=== PATIENT | male | born 1960 | race Caucasian/White ===

== ENCOUNTER 2018-12-05 23:01 | Emergency (ER) | payer BC ==
[~2018-12-05] VITALS: Ht 177.8 cm; Wt 104.6 kg
[2018-12-06] MEDS ORDERED: DIPHENHYDRAMINE 50 MG/ML, 1ML ONE (00:19)
[2018-12-06] MEDS ORDERED: PROCHLORPERAZINE 5 MG/ML, 2ML ONE (00:19)
[2018-12-06] MEDS ORDERED: KETOROLAC 30 MG/1 ML ONE (00:19)
--- NOTE | 2018-12-06 00:29 | NUR ---
PT HERE FOR HEADACHE AND DIZZINESS. BP ELEVATED BUT OTHER VSS. PIV PLACED. PT MEDICATED. PT HAS NO NEEDS AT THIS TIME. DAUGHTER AT BEDSIDE. CALL LIGHT IN REACH
[2018-12-06] MEDS ORDERED: DIPHENHYDRAMINE 50 MG/ML, 1ML IVPush ONE (00:30)
[2018-12-06] MEDS ORDERED: PROCHLORPERAZINE 5 MG/ML, 2ML IVPush ONE (00:30)
[2018-12-06] MEDS ORDERED: KETOROLAC 30 MG/1 ML IVPush ONE (00:30)
[2018-12-06] MEDS ORDERED: DIAZEPAM 5 MG TABLET ONE (00:49)
[2018-12-06 00:53] VITALS: BP 135/84
[2018-12-06] MEDS ORDERED: DIAZEPAM 5 MG TABLET PO ONE (01:00)
--- NOTE | 2018-12-06 01:36 | NUR ---
Patient given discharge instructions and they have confirmed that they understand the instructions. Patient ambulatory with steady gait.
== END 2018-12-06 01:39 | disposition home or self-care (01) ==
LOC: ED 23:59
DX: G44.209 Tension-type headache, unspecified, not intractable (principal); R42 Dizziness and giddiness; I10 Essential (primary) hypertension; E11.9 Type 2 diabetes mellitus without complications
CPT/HCPCS: 70450; 96374; 96375; 99284; J0780; J1200; J1885

== ENCOUNTER 2019-08-22 12:50 | Emergency (ER) | payer BC ==
[~2019-08-22] VITALS: Ht 177.8 cm; Wt 102.1 kg
[2019-08-22] MEDS ORDERED: SODIUM CHLORIDE 0.9% 1,000 ML IV ONE (13:14)
--- NOTE | 2019-08-22 13:22 | NUR ---
Pt to 27 from lobby
[2019-08-22] MEDS ORDERED: SODIUM CHLORIDE FLUSH 10ML SYR IVF ONE (13:30)
[2019-08-22] MEDS ORDERED: LORazepam 2 MG/ML, 1ML IV ONE (13:30)
[2019-08-22] MEDS ORDERED: LORazepam 2 MG/ML, 1ML ONE (13:47)
[2019-08-22 13:52] LABS: BASOPHILS # (AUTO) 0.03 x10^3/uL (0-0.1); BASOPHILS % (AUTO) 1 % (0-1); EOSINOPHILS # (AUTO) 0.07 x10^3/uL (0-0.4); EOSINOPHILS % (AUTO) 1 % (1-7); LYMPHOCYTES # (AUTO) 1.72 x10^3/uL (1-3.4); LYMPHOCYTES % (AUTO) 33 % (22-44); MD NO; MEAN CORPUSCULAR HEMOGLOBIN 30.9 pg (27.5-34.5); MEAN CORPUSCULAR HGB CONC 33.8 g/dL (33.2-36.2); MEAN CORPUSCULAR VOLUME 91.5 fL (81-97); MEAN PLATELET VOLUME 8.1 fL (7.4-10.4); MONOCYTES # (AUTO) 0.37 x10^3/uL (0.2-0.8); MONOCYTES % (AUTO) 7 % (2-9); NEUTROPHILS # (AUTO) 3.01 x10^3/uL (1.8-6.8); NEUTROPHILS % (AUTO) 58 % (42-75); PLATELET COUNT 235 x10^3/uL (130-400); RED BLOOD COUNT 5.58 x10^6/uL (4.38-5.82)
[2019-08-22 14:01] LABS: ALANINE AMINOTRANSFERASE 47 U/L (12-78); ALBUMIN 4.2 g/dL (3.4-5.0); ANION GAP 8 mmol/L (5-15); CHLORIDE 105 mmol/L (98-107); CREATININE 0.98 mg/dL (0.7-1.3)
--- NOTE | 2019-08-22 14:13 | NUR ---
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 DAUGHTER STATES "HE WAS TALKING LIKE A CAVEMAN". PT CURRENTLY AO X 4. PT ABLE TO MOVE ALL EXTREMITIES W/O DIFFICULTY. PETROLEUM PRODUCTION ENGINEER EQUAL BILATERALLY. SENSATION INTACT. PERRLA. SKIN PWD. RESP EVEN AND UNLABORED. PT ALSO REPORTS INCREASING LEG WEAKNESS OVER THE LAST MONTH THAT HE IS CURRENTLY BEING EVALUATED BY NEURO FOR. IV STARTED AND PT MEDICATED ORDERED FOR MRI. PT CURRENTLY IN MRI.
[2019-08-22] MEDS ORDERED: GADOTERATE 10 MMOL/20 ML SYR ONE (14:15)
[2019-08-22 14:30] LABS: ALKALINE PHOSPHATASE 65 U/L (45-117); BILIRUBIN,TOTAL 0.5 mg/dL (0.2-1.0); TOTAL PROTEIN 7.9 g/dL (6.4-8.2)
--- NOTE | 2019-08-22 14:45 | NUR ---
LANNY HOANG AT BEDSIDE FOR RECHECK/EXPLANATION OF RESULTS.
[2019-08-22 15:22] VITALS: BP 106/74
== END 2019-08-22 15:30 | disposition home or self-care (01) ==
LOC: ED 14:37
DX: R51 Headache (principal); R53.1 Weakness; R42 Dizziness and giddiness; R47.1 Dysarthria and anarthria
CPT/HCPCS: 36415; 70553; 80053; 82607; 83036; 83735; 85025; 93005; 96374; 99284; A9575; J2060

== ENCOUNTER → 2020-01-21 | Outpatient (CLI) | payer BC ==
[~2020-01-21] MED LIST: ASPI-496 PO; GABA300S PO; LISI-170 PO; MELO15TA24 PO; METF500T17 PO
[2020-01-21 16:25] LABS: MICROSCOPIC NOT IND
[2020-01-21 16:30] LABS: BASOPHILS # (AUTO) 0.04 x10^3/uL (0-0.1); BASOPHILS % (AUTO) 1 % (0-1); EOSINOPHILS # (AUTO) 0.19 x10^3/uL (0-0.4); EOSINOPHILS % (AUTO) 3 % (1-7); LYMPHOCYTES # (AUTO) 2.09 x10^3/uL (1-3.4); LYMPHOCYTES % (AUTO) 35 % (22-44); MD NO; MEAN CORPUSCULAR VOLUME 93.8 fL (81-97); MEAN PLATELET VOLUME 8.1 fL (7.4-10.4); MONOCYTES % (AUTO) 8 % (2-9); NEUTROPHILS # (AUTO) 3.22 x10^3/uL (1.8-6.8); NEUTROPHILS % (AUTO) 53 % (42-75); PLATELET COUNT 239 x10^3/uL (130-400); RED BLOOD COUNT 5.43 x10^6/uL (4.38-5.82); RED CELL DISTRIBUTION WIDTH 14.2 % (9.4-14.8)
[2020-01-21 16:36] LABS: INTERNATIONAL NORMALIZED RATIO 0.97 (0.93-1.1); PROTHROMBIN TIME 10.3 Seconds (9.6-11.5)
[2020-01-21 16:38] LABS: ALBUMIN 4.1 g/dL (3.4-5.0); ANION GAP 5 mmol/L (5-15); CALCIUM 9.5 mg/dL (8.5-10.1); CHLORIDE 110 mmol/L (98-107)
[2020-01-21 16:43] LABS: ALANINE AMINOTRANSFERASE 80 U/L (12-78); ALKALINE PHOSPHATASE 69 U/L (45-117); BILIRUBIN,TOTAL 0.3 mg/dL (0.2-1.0); CREATININE 1.04 mg/dL (0.7-1.3); TOTAL PROTEIN 8.1 g/dL (6.4-8.2)
== END | disposition home or self-care (01) ==
LOC: STAR 15:06
PROVIDERS: ATTEND Neurological Surgery
DX: Z01.818 Encounter for other preprocedural examination (principal); M47.814 Spondylosis without myelopathy or radiculopathy, thoracic region; M48.062 Spinal stenosis, lumbar region with neurogenic claudication; M51.36 Other intervertebral disc degeneration, lumbar region; M54.16 Radiculopathy, lumbar region; R79.1 Abnormal coagulation profile; R82.90 Unspecified abnormal findings in urine; R94.31 Abnormal electrocardiogram [ECG] [EKG]
CPT/HCPCS: 36415; 71046; 80053; 81003; 85025; 85610; 85730; 93005

== ENCOUNTER 2020-01-29 07:40 | Inpatient (IN) | payer BC ==
[~2020-01-29] VITALS: Ht 177.8 cm; Wt 110.3 kg
[2020-01-29] MEDS ORDERED: FENTANYL PF 250 MCG/5ML ONE (08:17)
[2020-01-29] MEDS ORDERED: MIDAZOLAM 1 MG/ML, 2ML ONE (08:17)
[2020-01-29] MEDS ORDERED: LIDOCAINE GEL 2%, 5ML ONE (08:18)
[2020-01-29] MEDS ORDERED: CHLORHEXIDINE 15 ML UDC ONE (08:21)
[2020-01-29] MEDS ORDERED: LACTATED RINGERS 1,000 ML IV SCH (08:22)
[2020-01-29] MEDS ORDERED: CHLORHEXIDINE 15 ML UDC MM ONE (08:30)
[2020-01-29] MEDS ORDERED: hydrALAzine 20 MG/ML, 1ML IV PRN (09:00)
[2020-01-29] MEDS ORDERED: PROMETHAZINE 25 MG/ML, 1ML IVPush PRN (09:00)
[2020-01-29] MEDS ORDERED: LABETALOL 5MG/ML, 20ML IV PRN (09:00)
[2020-01-29] MEDS ORDERED: GABAPENTIN 300 MG CAPSULE PO ONE (09:00)
[2020-01-29] MEDS ORDERED: ACETAMINOPHEN 500 MG TABLET PO ONE (09:00)
[2020-01-29] MEDS ORDERED: MEPERIDINE/PF 25MG/0.5ML IVPush PRN (09:00)
[2020-01-29] MEDS ORDERED: HALOPERIDOL 5 MG/ML IV PRN (09:00)
[2020-01-29] MEDS ORDERED: DIPHENHYDRAMINE 50 MG/ML, 1ML IVPush PRN ×2 (09:00→11:00)
[2020-01-29] MEDS ORDERED: HYDROmorphone 1 MG/ML, 1ML INJ IVPush PRN (09:00)
[2020-01-29] MEDS ORDERED: BACITRACIN 50,000 UNIT IRRIG ONE (09:38)
[2020-01-29] MEDS ORDERED: BUPIVACAINE/PF-EPI 0.5% 1:200K INFIL ONE (09:39)
[2020-01-29] MEDS ORDERED: PROPOFOL 10 MG/ML, 20ML ONE (10:25)
[2020-01-29] MEDS ORDERED: ONDANSETRON 2MG/ML, 2ML ONE (10:25)
[2020-01-29] MEDS ORDERED: SUCCINYLCHOLINE 20 MG/ML, 10ML ONE (10:25)
[2020-01-29] MEDS ORDERED: GLYCOPYRROLATE 0.2MG/1ML, 5ML ONE (10:25)
[2020-01-29] MEDS ORDERED: ROCURONIUM 10MG/ML,5ML ONE (10:25)
[2020-01-29] MEDS ORDERED: CEFAZOLIN 1,000 MG ONE (10:25)
[2020-01-29] MEDS ORDERED: DEXAMETHASONE 4 MG/ML, 1ML ONE (10:25)
[2020-01-29] MEDS ORDERED: NEOSTIGMINE 1 MG/ML, 10ML ONE (10:25)
[2020-01-29] MEDS ORDERED: FENTANYL PF 100 MCG/2ML ONE (10:56)
[2020-01-29] MEDS ORDERED: OXYcodone 5 MG/5 ML ORAL.SOL UDC ONE (10:57)
[2020-01-29] MEDS ORDERED: METHOCARBAMOL 1,000 MG in DEXTROSE 5% 100 ML IV ONE (11:00)
[2020-01-29] MEDS ORDERED: BISACODYL 10 MG SUPP PR PRN (11:00)
[2020-01-29] MEDS ORDERED: PROMETHAZINE 25 MG/ML, 1ML IM PRN (11:00)
[2020-01-29] MEDS ORDERED: ACETAMINOPHEN 325 MG TABLET PO PRN (11:00)
[2020-01-29] MEDS ORDERED: INSULIN REGULAR 100 UNITS/ML, 3ML VIAL SQ-INSULIN PRN (11:00)
[2020-01-29] MEDS: NS + 20MEQ KCL 1,000 ML IV SCH ×2 (11:00→20:37)
[2020-01-29] MEDS ORDERED: SENNA/DOCUSATE TABLET PO PRN (11:00)
[2020-01-29] MEDS ORDERED: ONDANSETRON 2MG/ML, 2ML IVPush PRN (11:00)
[2020-01-29] MEDS ORDERED: PHARMACY MAY ADJ FOR RENAL FX MC PRN (11:00)
[2020-01-29] MEDS: FENTANYL PF 100 MCG/2ML IV PRN ×3 (11:01→11:16)
[2020-01-29] MEDS: OXYcodone 5 MG/5 ML ORAL.SOL UDC PO PRN ×2 (11:10→11:17)
[2020-01-29 12:41] VITALS: BP 120/77
[2020-01-29] MEDS: HYDROmorphone 1 MG/ML, 1ML INJ IVPush PRN (13:51)
[2020-01-29] MEDS ORDERED: LISINOPRIL 20 MG TABLET PO ONE (14:00)
[2020-01-29] MEDS ORDERED: metFORMIN 500 MG TABLET PO ONE (14:00)
[2020-01-29] MEDS ORDERED: GABAPENTIN 300 MG CAPSULE ONE (16:20)
[2020-01-29] MEDS ORDERED: HYDROcodone/APAP 5/325 TABLET ONE (16:21)
[2020-01-29] MEDS: HYDROcodone/APAP 5/325 TABLET PO PRN (16:23)
[2020-01-29] MEDS: GABAPENTIN 300 MG CAPSULE PO SCH ×2 (16:24→20:37)
[2020-01-29] MEDS: CEFAZOLIN PMX 1GM/50ML 50 ML IVPB SCH (17:57)
[2020-01-29] MEDS: SODIUM CHLORIDE FLUSH 10ML SYR IVF SCH (20:38)
[2020-01-29 20:42] VITALS: BP 113/72
[2020-01-29] MEDS: OXYcodone/APAP 5/325MG TABLET PO PRN (20:48)
[2020-01-29] MEDS ORDERED: metFORMIN 500 MG TABLET ONE (21:46)
[2020-01-29] MEDS ORDERED: HYDROmorphone 1 MG/ML, 1ML INJ ONE (21:47)
[2020-01-29] MEDS ORDERED: LISINOPRIL 20 MG TABLET ONE (21:47)
[2020-01-29] MEDS: METHOCARBAMOL 750 MG TABLET PO PRN (22:18)
[2020-01-30 00:10] VITALS: BP 115/70
[2020-01-30] MEDS: CEFAZOLIN PMX 1GM/50ML 50 ML IVPB SCH ×2 (02:28→20:19)
[2020-01-30] MEDS: HYDROcodone/APAP 5/325 TABLET PO PRN (02:41)
[2020-01-30 03:09] VITALS: BP 116/72
[2020-01-30] MEDS: NS + 20MEQ KCL 1,000 ML IV SCH ×5 (04:54→22:57)
[2020-01-30 05:39] LABS: BASOPHILS # (AUTO) 0.02 x10^3/uL (0-0.1); BASOPHILS % (AUTO) 0 % (0-1); EOSINOPHILS # (AUTO) 0.04 x10^3/uL (0-0.4); EOSINOPHILS % (AUTO) 1 % (1-7); LYMPHOCYTES # (AUTO) 1.86 x10^3/uL (1-3.4); LYMPHOCYTES % (AUTO) 19 % (22-44); MD NO; MEAN CORPUSCULAR HEMOGLOBIN 31.5 pg (27.5-34.5); MEAN CORPUSCULAR HGB CONC 33.5 g/dL (33.2-36.2); MEAN PLATELET VOLUME 8.7 fL (7.4-10.4); MONOCYTES # (AUTO) 0.71 x10^3/uL (0.2-0.8); MONOCYTES % (AUTO) 7 % (2-9); NEUTROPHILS # (AUTO) 7.28 x10^3/uL (1.8-6.8); NEUTROPHILS % (AUTO) 73 % (42-75); PLATELET COUNT 226 x10^3/uL (130-400); RED BLOOD COUNT 4.94 x10^6/uL (4.38-5.82); RED CELL DISTRIBUTION WIDTH 13.9 % (9.4-14.8)
[2020-01-30 05:48] LABS: CHLORIDE 107 mmol/L (98-107)
[2020-01-30 05:52] LABS: ALBUMIN 3.8 g/dL (3.4-5.0); ANION GAP 6 mmol/L (5-15); CREATININE 0.99 mg/dL (0.7-1.3)
[2020-01-30] MEDS ORDERED: BACITRACIN 50,000 UNIT ONE (06:32)
[2020-01-30] MEDS ORDERED: BUPIVACAINE/PF-EPI 0.5% 1:200K ONE (06:32)
[2020-01-30] MEDS ORDERED: VANCOMYCIN 1,000 MG ONE (06:32)
[2020-01-30 06:57] VITALS: BP 101/63
[2020-01-30] MEDS: GABAPENTIN 300 MG CAPSULE PO SCH ×3 (08:14→20:19)
[2020-01-30] MEDS: SODIUM CHLORIDE FLUSH 10ML SYR IVF SCH ×3 (08:14→20:17)
[2020-01-30] MEDS ORDERED: FENTANYL PF 250 MCG/5ML ONE (10:35)
[2020-01-30] MEDS ORDERED: MIDAZOLAM 1 MG/ML, 2ML ONE (10:35)
[2020-01-30] MEDS ORDERED: CHLORHEXIDINE 15 ML UDC MM ONE (11:00)
[2020-01-30] MEDS ORDERED: ACETAMINOPHEN 500 MG TABLET ONE (11:15)
[2020-01-30] MEDS ORDERED: ACETAMINOPHEN 500 MG TABLET PO ONE (11:30)
[2020-01-30] MEDS ORDERED: GABAPENTIN 300 MG CAPSULE PO ONE (11:30)
[2020-01-30] MEDS ORDERED: MEPERIDINE/PF 25MG/0.5ML IVPush PRN (12:30)
[2020-01-30] MEDS ORDERED: morphine SULFATE 10 MG/ML, 1ML IVPush PRN (12:30)
[2020-01-30] MEDS ORDERED: LABETALOL 5MG/ML, 20ML IV PRN (12:30)
[2020-01-30] MEDS ORDERED: HYDROmorphone 1 MG/ML, 1ML INJ IVPush PRN ×2 (12:30→15:00)
[2020-01-30] MEDS ORDERED: HYDROcodone/APAP 7.5-325MG/15ML UDC PO PRN (12:30)
[2020-01-30] MEDS ORDERED: hydrALAzine 20 MG/ML, 1ML IV PRN (12:30)
[2020-01-30] MEDS ORDERED: ONDANSETRON 2MG/ML, 2ML IVPush PRN ×2 (12:30→15:00)
[2020-01-30] MEDS ORDERED: OXYcodone 5 MG/5 ML ORAL.SOL UDC PO PRN (12:30)
[2020-01-30] MEDS ORDERED: BUPIVACAINE/PF-EPI 0.5% 1:200K INFIL ONE (13:16)
[2020-01-30] MEDS ORDERED: VANCOMYCIN 1,000 MG IM ONE (13:17)
[2020-01-30] MEDS ORDERED: ENOXAPARIN 40 MG/0.4 ML SQ SCH (14:00)
[2020-01-30] MEDS ORDERED: FENTANYL PF 100 MCG/2ML ONE ×2 (14:45→15:12)
[2020-01-30] MEDS: FENTANYL PF 100 MCG/2ML IV PRN ×4 (14:47→15:34)
[2020-01-30] MEDS ORDERED: OXYcodone 5 MG/5 ML ORAL.SOL UDC ONE (14:54)
[2020-01-30] MEDS ORDERED: MAGNESIUM HYDROXIDE 8%, 30ML UDC PO PRN (15:00)
[2020-01-30] MEDS ORDERED: PHARMACY MAY ADJ FOR RENAL FX MC PRN (15:00)
[2020-01-30] MEDS ORDERED: METHOCARBAMOL 1,000 MG in DEXTROSE 5% 100 ML IV ONE (15:00)
[2020-01-30] MEDS ORDERED: HYDROcodone/APAP 5/325 TABLET PO PRN (15:00)
[2020-01-30] MEDS ORDERED: PROMETHAZINE 25 MG/ML, 1ML IM PRN (15:00)
[2020-01-30] MEDS ORDERED: SENNA/DOCUSATE TABLET PO PRN (15:00)
[2020-01-30] MEDS: ENOXAPARIN 40 MG/0.4 ML SQ SCH (15:00)
[2020-01-30] MEDS ORDERED: DIPHENHYDRAMINE 50 MG/ML, 1ML IVPush PRN (15:00)
[2020-01-30] MEDS ORDERED: OXYcodone/APAP 5/325MG TABLET PO PRN (15:00)
[2020-01-30] MEDS ORDERED: METHOCARBAMOL 750 MG TABLET PO PRN (15:00)
[2020-01-30] MEDS ORDERED: MEPERIDINE/PF 25MG/ML,1ML ONE (15:00)
[2020-01-30] MEDS ORDERED: BISACODYL 10 MG SUPP PR PRN (15:00)
[2020-01-30 16:08] VITALS: BP 128/80
[2020-01-30 18:41] VITALS: BP 139/75
[2020-01-30] MEDS: HYDROmorphone 1 MG/ML, 1ML INJ IVPush PRN (21:52)
[2020-01-31 00:43] VITALS: BP 129/84
[2020-01-31] MEDS: HYDROmorphone 1 MG/ML, 1ML INJ IVPush PRN ×2 (01:41→05:16)
[2020-01-31] MEDS: METHOCARBAMOL 750 MG TABLET PO PRN (01:42)
[2020-01-31] MEDS: NS + 20MEQ KCL 1,000 ML IV SCH ×6 (02:57→23:00)
[2020-01-31] MEDS: CEFAZOLIN PMX 1GM/50ML 50 ML IVPB SCH (03:40)
[2020-01-31] MEDS: MAGNESIUM HYDROXIDE 8%, 30ML UDC PO PRN (05:48)
[2020-01-31 06:10] VITALS: BP 135/68
[2020-01-31] MEDS: GABAPENTIN 300 MG CAPSULE PO SCH ×3 (07:39→21:05)
[2020-01-31] MEDS: SODIUM CHLORIDE FLUSH 10ML SYR IVF SCH ×4 (07:39→21:00)
[2020-01-31] MEDS: OXYcodone/APAP 5/325MG TABLET PO PRN (07:40)
[2020-01-31 08:27] LABS: BASOPHILS % (AUTO) 0 % (0-1); EOSINOPHILS # (AUTO) 0.03 x10^3/uL (0-0.4); EOSINOPHILS % (AUTO) 0 % (1-7); LYMPHOCYTES # (AUTO) 1.39 x10^3/uL (1-3.4); LYMPHOCYTES % (AUTO) 17 % (22-44); MD NO; MEAN CORPUSCULAR HGB CONC 33.2 g/dL (33.2-36.2); MEAN CORPUSCULAR VOLUME 93.4 fL (81-97); MEAN PLATELET VOLUME 8.3 fL (7.4-10.4); MONOCYTES # (AUTO) 0.83 x10^3/uL (0.2-0.8); MONOCYTES % (AUTO) 10 % (2-9); NEUTROPHILS # (AUTO) 5.76 x10^3/uL (1.8-6.8); NEUTROPHILS % (AUTO) 72 % (42-75); PLATELET COUNT 223 x10^3/uL (130-400); RED CELL DISTRIBUTION WIDTH 13.8 % (9.4-14.8)
[2020-01-31] MEDS ORDERED: METHOCARBAMOL 1000MG/10 ML IV SCH (09:00)
[2020-01-31] MEDS: METHOCARBAMOL 1,000 MG in DEXTROSE 5% 100 ML IV SCH ×3 (09:49→21:05)
[2020-01-31] MEDS: METOCLOPRAMIDE 5 MG/ML, 2ML IVPush SCH ×3 (09:49→21:05)
[2020-01-31] MEDS: KETOROLAC 30 MG/1 ML IVPush SCH ×3 (09:49→21:05)
[2020-01-31 14:50] VITALS: BP 133/78
[2020-01-31] MEDS: ENOXAPARIN 40 MG/0.4 ML SQ SCH (18:00)
[2020-01-31 19:56] VITALS: BP 127/66
[2020-02-01 00:45] VITALS: BP 128/75
[2020-02-01] MEDS: METOCLOPRAMIDE 5 MG/ML, 2ML IVPush SCH ×2 (02:39→08:46)
[2020-02-01] MEDS: KETOROLAC 30 MG/1 ML IVPush SCH ×2 (02:41→08:46)
[2020-02-01] MEDS: NS + 20MEQ KCL 1,000 ML IV SCH ×3 (04:30→12:30)
[2020-02-01 06:27] LABS: BASOPHILS # (AUTO) 0.03 x10^3/uL (0-0.1); BASOPHILS % (AUTO) 0 % (0-1); EOSINOPHILS # (AUTO) 0.09 x10^3/uL (0-0.4); EOSINOPHILS % (AUTO) 1 % (1-7); LYMPHOCYTES # (AUTO) 1.21 x10^3/uL (1-3.4); LYMPHOCYTES % (AUTO) 16 % (22-44); MD NO; MEAN CORPUSCULAR HGB CONC 33.2 g/dL (33.2-36.2); MEAN CORPUSCULAR VOLUME 93.3 fL (81-97); MEAN PLATELET VOLUME 8.2 fL (7.4-10.4); MONOCYTES % (AUTO) 10 % (2-9); NEUTROPHILS # (AUTO) 5.36 x10^3/uL (1.8-6.8); NEUTROPHILS % (AUTO) 73 % (42-75); PLATELET COUNT 198 x10^3/uL (130-400); RED BLOOD COUNT 4.68 x10^6/uL (4.38-5.82); RED CELL DISTRIBUTION WIDTH 13.3 % (9.4-14.8)
[2020-02-01 07:36] VITALS: BP 124/74
[2020-02-01] MEDS ORDERED: ACETAMINOPHEN 650 MG/20.3 ML UDC ONE (08:40)
[2020-02-01] MEDS: METHOCARBAMOL 1,000 MG in DEXTROSE 5% 100 ML IV SCH (08:46)
[2020-02-01] MEDS: SODIUM CHLORIDE FLUSH 10ML SYR IVF SCH ×2 (08:47)
[2020-02-01] MEDS: GABAPENTIN 300 MG CAPSULE PO SCH (08:47)
[2020-02-01] MEDS: MAGNESIUM HYDROXIDE 8%, 30ML UDC PO PRN (08:55)
[2020-02-01] MEDS ORDERED: METH750T87 PO (12:33)
[2020-02-01] MEDS ORDERED: TRAM50TA2 PO (12:33)
[2020-02-01 12:47] VITALS: BP 147/78
== END 2020-02-01 13:32 | disposition home or self-care (01) | DRG 455 ==
LOC: ORIP 07:40 → 3N 12:24 → DCLOUNGE 02-01 13:24
PROVIDERS: ADMIT Neurological Surgery; ATTEND Neurological Surgery
PROC: 0SB20ZZ Excision of Lumbar Vertebral Disc, Open Approach (ICD-10-PCS; 2020-01-29)
PROC: 0SG00A0 Fusion of Lumbar Vertebral Joint with Interbody Fusion Device, Anterior Approach, Anterior Column, Open Approach (ICD-10-PCS; principal; 2020-01-29 09:30)
PROC: 0SG0071 Fusion of Lumbar Vertebral Joint with Autologous Tissue Substitute, Posterior Approach, Posterior Column, Open Approach (ICD-10-PCS; 2020-01-30)
PROC: 01NB0ZZ Release Lumbar Nerve, Open Approach (ICD-10-PCS; 2020-01-30)
PROC: 01NR0ZZ Release Sacral Nerve, Open Approach (ICD-10-PCS; 2020-01-30)
PROC: 4A11X4G Monitoring of Peripheral Nervous Electrical Activity, Intraoperative, External Approach (ICD-10-PCS; 2020-01-30)
DX: M48.062 Spinal stenosis, lumbar region with neurogenic claudication (principal); M47.26 Other spondylosis with radiculopathy, lumbar region; M51.16 Intervertebral disc disorders with radiculopathy, lumbar region; Z20.828 Contact with and (suspected) exposure to other viral communicable diseases
CPT/HCPCS: 36415; 72100; 72131; 74018; 80048; 82040; 82962; 85025; 87635; C1713; G0378; J0690; J1100; J1170; J1650; J1885; J2175; J2250; J2405; J2704; J2710; J3010; J3370; J3480; C1763; C1889; J0330; J2765; J2800; J7120